=== PATIENT | male | born 1955 | race Caucasian/White ===

== ENCOUNTER 2023-01-27 19:49 | Inpatient (IN) | payer MEDICARE, OTHER ==
[~2023-01-27] VITALS: Ht 172.7 cm; Wt 72.1 kg
[2023-01-27] MEDS ORDERED: OMEP40CA21 PO (21:18)
[2023-01-27] MEDS ORDERED: EZET10TA15 PO (21:18)
[2023-01-27] MEDS ORDERED: SERT25TA PO (21:18)
[2023-01-27] MEDS ORDERED: CHLO25CA22 PO (21:18)
[2023-01-27] MEDS ORDERED: AMLO10TA59 PO (21:18)
[2023-01-27] MEDS ORDERED: SIMV-49 PO (21:18)
[2023-01-27] MEDS ORDERED: GABA-532 PO (21:18)
[2023-01-27] MEDS ORDERED: TAMS-3 PO (21:18)
[2023-01-27 22:20] LABS: ALANINE AMINOTRANSFERASE 22 U/L (16-63); ALBUMIN 4.1 g/dL (3.4-5.0); ALKALINE PHOSPHATASE 76 U/L (50-136); ASPARTATE AMINOTRANSFERASE 21 U/L (15-37); BILIRUBIN,DIRECT 0.1 mg/dL (0.0-0.2); BILIRUBIN,TOTAL 0.3 mg/dL (0.2-1.0); CALCIUM 9.3 mg/dL (8.5-10.1); CARBON DIOXIDE 21 mmol/L (21-32); CHLORIDE 108 mmol/L (98-107); CREATININE 1.3 mg/dL (0.6-1.3); GLUCOSE 107 mg/dL (74-106); POTASSIUM 4.3 mmol/L (3.5-5.1); SODIUM SERUM 145 mmol/L (136-145); TOTAL PROTEIN, SERUM 7.6 g/dL (6.4-8.2); UREA NITROGEN, BLOOD 29 mg/dL (7-18)
[2023-01-27 22:27] LABS: BASOPHILS # (AUTO) 0.1 K/UL (0.0-0.2); BASOPHILS % (AUTO) 1.1 % (0.0-2.0); EOSINOPHILS # (AUTO) 0.1 K/uL (0.0-0.7); EOSINOPHILS % (AUTO) 2.1 % (0.0-7.0); HEMATOCRIT 36.6 % (36.7-47.1); HEMOGLOBIN 12.8 g/dL (12.5-16.3); LYMPHOCYTES # (AUTO) 1.4 K/uL (0.8-4.8); LYMPHOCYTES % (AUTO) 26.1 % (20.5-51.5); MEAN CORPUSCULAR HEMOGLOBIN 30.5 uug (23.8-33.4); MEAN CORPUSCULAR HGB CONC 35 g/dL (32.5-36.3); MEAN CORPUSCULAR VOLUME 87.1 fL (73.0-96.2); MONOCYTES # (AUTO) 0.4 K/uL (0.1-1.30); MONOCYTES % (AUTO) 7.5 % (0.0-11.0); NEUTROPHILS # (AUTO) 3.3 K/uL (1.8-8.9); NEUTROPHILS % (AUTO) 63.2 % (38.5-71.5); PLATELET COUNT (AUTO) 239 K/uL (152-348); RED CELL DISTRIBUTION WIDTH 13.1 % (12.1-16.2); WHITE BLOOD COUNT (AUTO) 5.3 K/uL (3.6-10.2)
[2023-01-27 22:28] LABS: THYROID STIMULATING HORMONE 1.172 mIU/mL (0.358-3.740)
[2023-01-27 22:32] LABS: ACETAMINOPHEN < 2.0 ug/mL (10-30)
[2023-01-27 22:33] LABS: DIFFERENTIAL COMMENT 1
[2023-01-27 22:53] LABS: ETHANOL 175 MG/DL (0-10)
[2023-01-27 22:55] LABS: *BILIRUBIN,URIN NEGATIVE (NEGATIVE); *BLOOD, URINE NEGATIVE (NEGATIVE); *CLARITY,URINE CLEAR (CLEAR); *COLOR,URINE YELLOW (YELLOW); *KETONES,URINE NEGATIVE (NEGATIVE); *PROTEIN,URINE 1+ (NEGATIVE); *UROBILINOGEN,URINE 0.2 E.U./dl (NORMAL); LEUKOCYTE ESTERASE ,URINE NEGATIVE (NEGATIVE); NITRITE, URINE NEGATIVE (NEGATIVE); PH,URINE 5.5 (5.0-8.0); UGLUCOSE NEGATIVE (NEGATIVE)
[2023-01-27 23:06] LABS: AMMONIA 16 umol/L (11-32)
[2023-01-27 23:13] LABS: *AMPHETAMINE, URINE NEGATIVE (NEGATIVE); *BARBITURATE, URINE NEGATIVE (NEGATIVE); *BENZODIAZEPINE, URINE POSITIVE (NEGATIVE); *CANNABINOID, URINE NEGATIVE (NEGATIVE); *COCCAINE, URINE NEGATIVE (NEGATIVE); *OPIATE, URINE NEGATIVE (NEGATIVE); *PHENCYCLIDINE SCREEN,URINE NEGATIVE (NEGATIVE); FENTANYL, URINE NEGATIVE (NEGATIVE)
[2023-01-27] MEDS ORDERED: LORAZEPAM 2 MG/1 ML VIAL IV PRN (23:30)
[2023-01-28 05:22] VITALS: BP 146/83; TEMP 98.2
[2023-01-28 11:55] VITALS: BP 147/82; TEMP 98.7; O2SAT 96
[2023-01-28] MEDS ORDERED: ASPI-1420 PO (12:47)
[2023-01-28] MEDS ORDERED: ERGO500040 PO (12:49)
[2023-01-28] MEDS ORDERED: TRAM50TA2 PO (12:49)
[2023-01-28 15:54] VITALS: BP 148/80; TEMP 97.7; O2SAT 95
[2023-01-28] MEDS ORDERED: TRAMADOL HCL 50 MG TABLET PO PRN (18:15)
[2023-01-28 20:20] VITALS: BP_SYST 140; BP_SYST 148; BP_DIAS 70; BP_DIAS 80; TEMP 97.7; O2SAT 94; O2SAT 95
[2023-01-28] MEDS: SIMVASTATIN 40 MG TABLET PO SCH (22:00)
[2023-01-28] MEDS: TAMSULOSIN HCL 0.4 MG CAP.SR.24H PO SCH (22:01)
[2023-01-28] MEDS ORDERED: ZOLPIDEM 5 MG TABLET PO PRN (23:15)
[2023-01-28] MEDS: CHLORDIAZEPOXIDE HCL 25 MG CAPSULE PO SCH (23:27)
[2023-01-29 04:18] VITALS: BP 151/77; TEMP 97.5; O2SAT 94
[2023-01-29] MEDS: CHLORDIAZEPOXIDE HCL 25 MG CAPSULE PO SCH ×3 (06:09→18:08)
[2023-01-29] MEDS: PANTOPRAZOLE SODIUM 40 MG TABLET.DR PO SCH (06:09)
[2023-01-29] MEDS: IV D5/ 0.9% NACL 1,000 ML IV PRN (06:41)
[2023-01-29 08:00] VITALS: BP 146/70; TEMP 97.9; O2SAT 97
[2023-01-29 08:04] LABS: BASOPHILS % (AUTO) 0.6 % (0.0-2.0); EOSINOPHILS # (AUTO) 0.2 K/uL (0.0-0.7); HEMATOCRIT 33.4 % (36.7-47.1); HEMOGLOBIN 11.7 g/dL (12.5-16.3); LYMPHOCYTES # (AUTO) 0.9 K/uL (0.8-4.8); LYMPHOCYTES % (AUTO) 17.7 % (20.5-51.5); MEAN CORPUSCULAR HEMOGLOBIN 30.9 uug (23.8-33.4); MEAN CORPUSCULAR HGB CONC 35 g/dL (32.5-36.3); MONOCYTES # (AUTO) 0.4 K/uL (0.1-1.30); MONOCYTES % (AUTO) 8.5 % (0.0-11.0); NEUTROPHILS # (AUTO) 3.4 K/uL (1.8-8.9); NEUTROPHILS % (AUTO) 69.2 % (38.5-71.5); PLATELET COUNT (AUTO) 178 K/uL (152-348); RED BLOOD CELL COUNT(AUTO) 3.79 MIL/uL (4.06-5.63); RED CELL DISTRIBUTION WIDTH 12.9 % (12.1-16.2); WHITE BLOOD COUNT (AUTO) 4.9 K/uL (3.6-10.2)
[2023-01-29 08:30] LABS: DIFFERENTIAL COMMENT 1
[2023-01-29 08:38] LABS: CALCIUM 8.4 mg/dL (8.5-10.1); CREATININE 1.1 mg/dL (0.6-1.3); MAGNESIUM 1.6 mg/dL (1.8-2.4); PHOSPHOROUS 2.9 mg/dL (2.5-4.9); POTASSIUM 4.2 mmol/L (3.5-5.1)
[2023-01-29] MEDS: GABAPENTIN 300 MG CAPSULE PO SCH (09:22)
[2023-01-29] MEDS: EZETIMIBE 10 MG TABLET PO SCH (09:22)
[2023-01-29] MEDS: ASPIRIN EC 81 MG TABLET.DR PO SCH (09:22)
[2023-01-29] MEDS: SERTRALINE HCL 50 MG TABLET PO SCH (09:22)
[2023-01-29] MEDS: AMLODIPINE 10 MG TABLET PO SCH (09:25)
[2023-01-29] MEDS: MAGNESIUM SULFATE/D5W 100 ML IV SCH ×4 (10:17→14:04)
[2023-01-29 11:53] VITALS: BP 145/82; TEMP 98.8; O2SAT 96
[2023-01-29 20:00] VITALS: BP 152/83; TEMP 98.2; O2SAT 95
[2023-01-29] MEDS: SIMVASTATIN 40 MG TABLET PO SCH (20:05)
[2023-01-29] MEDS: TAMSULOSIN HCL 0.4 MG CAP.SR.24H PO SCH (20:06)
[2023-01-30] MEDS: CHLORDIAZEPOXIDE HCL 25 MG CAPSULE PO SCH ×3 (00:03→12:15)
[2023-01-30] MEDS: IV D5/ 0.9% NACL 1,000 ML IV PRN (00:39)
[2023-01-30] MEDS ORDERED: ACETAMINOPHEN 325 MG TABLET PO PRN (00:45)
[2023-01-30 04:00] VITALS: BP 141/75; TEMP 97.9; O2SAT 94
[2023-01-30] MEDS: PANTOPRAZOLE SODIUM 40 MG TABLET.DR PO SCH (06:02)
[2023-01-30 06:46] LABS: BASOPHILS % (AUTO) 0.6 % (0.0-2.0); EOSINOPHILS # (AUTO) 0.2 K/uL (0.0-0.7); EOSINOPHILS % (AUTO) 4.1 % (0.0-7.0); HEMATOCRIT 32.1 % (36.7-47.1); HEMOGLOBIN 11.5 g/dL (12.5-16.3); LYMPHOCYTES % (AUTO) 20.9 % (20.5-51.5); MEAN CORPUSCULAR HEMOGLOBIN 31.2 uug (23.8-33.4); MEAN CORPUSCULAR HGB CONC 36 g/dL (32.5-36.3); MEAN CORPUSCULAR VOLUME 87.6 fL (73.0-96.2); MONOCYTES # (AUTO) 0.4 K/uL (0.1-1.30); MONOCYTES % (AUTO) 8.8 % (0.0-11.0); NEUTROPHILS % (AUTO) 65.6 % (38.5-71.5); PLATELET COUNT (AUTO) 174 K/uL (152-348); RED BLOOD CELL COUNT(AUTO) 3.67 MIL/uL (4.06-5.63); WHITE BLOOD COUNT (AUTO) 4.6 K/uL (3.6-10.2)
[2023-01-30 07:04] LABS: CALCIUM 8.1 mg/dL (8.5-10.1); MAGNESIUM 1.9 mg/dL (1.8-2.4); PHOSPHOROUS 3.3 mg/dL (2.5-4.9); POTASSIUM 3.7 mmol/L (3.5-5.1)
[2023-01-30 07:06] LABS: DIFFERENTIAL COMMENT 1
[2023-01-30 07:50] VITALS: BP 147/84; TEMP 97.6; O2SAT 98
[2023-01-30] MEDS: ASPIRIN EC 81 MG TABLET.DR PO SCH (08:50)
[2023-01-30] MEDS: GABAPENTIN 300 MG CAPSULE PO SCH (08:50)
[2023-01-30] MEDS: EZETIMIBE 10 MG TABLET PO SCH (08:50)
[2023-01-30] MEDS: AMLODIPINE 10 MG TABLET PO SCH (08:50)
[2023-01-30] MEDS: SERTRALINE HCL 50 MG TABLET PO SCH (08:51)
[2023-01-30] MEDS ORDERED: MULTIVIT, IRON, MIN NO. 8, FA TABLET PO SCH (09:00)
[2023-01-30] MEDS ORDERED: FOLIC ACID 1 MG TABLET PO SCH (09:00)
[2023-01-30 12:00] VITALS: BP 142/73; TEMP 97.9; O2SAT 97
== END 2023-01-30 15:15 | DRG 897 ==
LOC: ER 19:53 → MEDSURG3 23:00
PROVIDERS: ADMIT Internal Medicine Nephrology; ATTEND Internal Medicine Nephrology
DX: F10.159 Alcohol abuse with alcohol-induced psychotic disorder, unspecified (principal); N17.9 Acute kidney failure, unspecified; G31.2 Degeneration of nervous system due to alcohol; I10 Essential (primary) hypertension; Y90.6 Blood alcohol level of 120-199 mg/100 ml; E78.5 Hyperlipidemia, unspecified; N40.0 Benign prostatic hyperplasia without lower urinary tract symptoms; Z82.49 Family history of ischemic heart disease and other diseases of the circulatory system
CPT/HCPCS: 36415; 70450; 71045; 73030; 83605; 83735; 84100; 84443; 84484; 85025; 85730; 87040; 93005; G0378; G0480; J3475; J7042

== ENCOUNTER 2023-07-25 20:06 | Emergency (ER) | payer MEDICARE, OTHER ==
[~2023-07-25] VITALS: Ht 172.7 cm; Wt 76.2 kg
[~2023-07-25 20:06] MED LIST: AMLO10TA59 PO; ASPI-1420 PO; CHLO25CA22 PO; ERGO500040 PO; EZET10TA15 PO; GABA-532 PO; OMEP40CA21 PO; SERT25TA PO; SIMV-49 PO; TAMS-3 PO; TRAM50TA2 PO
[2023-07-25] MEDS ORDERED: ONDANSETRON 4 MG/2 ML VIAL ONE (20:49)
[2023-07-25] MEDS: ONDANSETRON 4 MG/2 ML VIAL IV ONE (20:58)
[2023-07-25 21:00] LABS: BASOPHILS # (AUTO) 0.1 K/UL (0.0-0.2); EOSINOPHILS # (AUTO) 0.1 K/uL (0.0-0.7); EOSINOPHILS % (AUTO) 1.4 % (0.0-7.0); HEMATOCRIT 42.6 % (36.7-47.1); HEMOGLOBIN 14.6 g/dL (12.5-16.3); LYMPHOCYTES # (AUTO) 1.4 K/uL (0.8-4.8); LYMPHOCYTES % (AUTO) 22.2 % (20.5-51.5); MEAN CORPUSCULAR HEMOGLOBIN 31.1 uug (23.8-33.4); MEAN CORPUSCULAR HGB CONC 34 g/dL (32.5-36.3); MEAN CORPUSCULAR VOLUME 90.5 fL (73.0-96.2); MONOCYTES # (AUTO) 0.3 K/uL (0.1-1.30); MONOCYTES % (AUTO) 5.2 % (0.0-11.0); NEUTROPHILS # (AUTO) 4.5 K/uL (1.8-8.9); NEUTROPHILS % (AUTO) 70.2 % (38.5-71.5); PLATELET COUNT (AUTO) 277 K/uL (152-348); RED BLOOD CELL COUNT(AUTO) 4.71 MIL/uL (4.06-5.63); RED CELL DISTRIBUTION WIDTH 14.8 % (12.1-16.2); WHITE BLOOD COUNT (AUTO) 6.4 K/uL (3.6-10.2)
[2023-07-25 21:05] LABS: DIFFERENTIAL COMMENT 1
[2023-07-25] MEDS: IV NORMAL SALINE 1000 ML BAG IV ONE (21:09)
[2023-07-25 21:33] LABS: POTASSIUM 3.3 mmol/L (3.5-5.1)
[2023-07-25 21:34] LABS: CALCIUM 9.2 mg/dL (8.5-10.1)
[2023-07-25 21:44] LABS: ALBUMIN 3.9 g/dL (3.4-5.0); BILIRUBIN,TOTAL 0.3 mg/dL (0.2-1.0); TOTAL PROTEIN, SERUM 7.9 g/dL (6.4-8.2)
[2023-07-25] MEDS ORDERED: POTASSIUM CHLORIDE 20 MEQ TAB.PRT.SR ONE (22:01)
[2023-07-25] MEDS: POTASSIUM CHLORIDE 20 MEQ TAB.PRT.SR PO ONE (22:06)
[2023-07-25 22:16] LABS: *BILIRUBIN,URIN NEGATIVE (NEGATIVE); *BLOOD, URINE NEGATIVE (NEGATIVE); *CLARITY,URINE CLEAR (CLEAR); *COLOR,URINE YELLOW (YELLOW); *KETONES,URINE NEGATIVE (NEGATIVE); *PROTEIN,URINE 1+ (NEGATIVE); *UROBILINOGEN,URINE 0.2 E.U./dl (NORMAL); LEUKOCYTE ESTERASE ,URINE NEGATIVE (NEGATIVE); NITRITE, URINE NEGATIVE (NEGATIVE); PH,URINE 6.5 (5.0-8.0); UGLUCOSE NEGATIVE (NEGATIVE)
[2023-07-25 22:25] LABS: *AMPHETAMINE, URINE NEGATIVE (NEGATIVE); *BARBITURATE, URINE NEGATIVE (NEGATIVE); *BENZODIAZEPINE, URINE NEGATIVE (NEGATIVE); *CANNABINOID, URINE NEGATIVE (NEGATIVE); *COCCAINE, URINE NEGATIVE (NEGATIVE); *OPIATE, URINE NEGATIVE (NEGATIVE); *PHENCYCLIDINE SCREEN,URINE NEGATIVE (NEGATIVE); FENTANYL, URINE NEGATIVE (NEGATIVE)
[2023-07-25 22:33] LABS: BACTERIA,URINE NONE SEEN /HPF (NONE SEEN); RBC,URINE NONE SEEN /HPF (0-3); SQUAMOUS EPITHELIAL CELL,UR FEW /HPF (NONE SEEN); WBC,URINE NONE SEEN /HPF (0-3)
[2023-07-25] MEDS: IV NS 1000 ML 1,000 ML IV ONE (23:27)
[2023-07-26] MEDS ORDERED: CHLO25CA22 PO (07:24)
[2023-07-26] MEDS ORDERED: POTA25TA7 PO (07:24)
[2023-07-26] MEDS ORDERED: CHLORDIAZEPOXIDE HCL 25 MG CAPSULE ONE (07:26)
[2023-07-26] MEDS: CHLORDIAZEPOXIDE HCL 25 MG CAPSULE PO ONE (07:28)
[2023-07-26 07:30] VITALS: O2SAT 98
== END 2023-07-26 07:31 | disposition home or self-care (01) ==
LOC: ER 20:10
DX: F10.129 Alcohol abuse with intoxication, unspecified (principal); E87.6 Hypokalemia; I10 Essential (primary) hypertension; K21.9 Gastro-esophageal reflux disease without esophagitis; Z79.82 Long term (current) use of aspirin; Z79.899 Other long term (current) drug therapy; Y90.0 Blood alcohol level of less than 20 mg/100 ml
CPT/HCPCS: 80053; 81001; 83735; 85025; 36415; 74176 ×2; 99285; 96361; 96374; 80320; 80307; J2405; J7040 ×2; A4606; A4663; G0480

== ENCOUNTER 2023-07-30 10:05 | Inpatient (IN) | payer MEDICARE, OTHER ==
[~2023-07-30] VITALS: Ht 172.7 cm; Wt 76.2 kg
[~2023-07-30 10:05] MED LIST changes: +POTA25TA7 PO; -TRAM50TA2 PO
[2023-07-30 11:02] LABS: *BILIRUBIN,URIN NEGATIVE (NEGATIVE); *BLOOD, URINE NEGATIVE (NEGATIVE); *CLARITY,URINE CLEAR (CLEAR); *COLOR,URINE YELLOW (YELLOW); *KETONES,URINE NEGATIVE (NEGATIVE); *PROTEIN,URINE 2+ (NEGATIVE); *UROBILINOGEN,URINE 0.2 E.U./dl (NORMAL); LEUKOCYTE ESTERASE ,URINE NEGATIVE (NEGATIVE); NITRITE, URINE NEGATIVE (NEGATIVE); PH,URINE 5.5 (5.0-8.0); UGLUCOSE NEGATIVE (NEGATIVE)
[2023-07-30] MEDS ORDERED: KETOROLAC TROMETHAMINE 15 MG INJ ONE (11:08)
[2023-07-30] MEDS ORDERED: METOCLOPRAMIDE HCL 10 MG/2 ML VIAL ONE (11:08)
[2023-07-30] MEDS: KETOROLAC TROMETHAMINE 15 MG INJ IVP ONE (11:13)
[2023-07-30] MEDS: METOCLOPRAMIDE HCL 10 MG/2 ML VIAL IV ONE (11:16)
[2023-07-30 11:30] LABS: SQUAMOUS EPITHELIAL CELL,UR FEW /HPF (NONE SEEN); WBC,URINE NONE SEEN /HPF (0-3)
[2023-07-30 11:56] LABS: BASOPHILS % (AUTO) 0.9 % (0.0-2.0); EOSINOPHILS # (AUTO) 0.1 K/uL (0.0-0.7); EOSINOPHILS % (AUTO) 2.4 % (0.0-7.0); HEMATOCRIT 38.4 % (36.7-47.1); HEMOGLOBIN 13.3 g/dL (12.5-16.3); LYMPHOCYTES % (AUTO) 19.8 % (20.5-51.5); MEAN CORPUSCULAR HEMOGLOBIN 31.3 uug (23.8-33.4); MEAN CORPUSCULAR HGB CONC 35 g/dL (32.5-36.3); MEAN CORPUSCULAR VOLUME 90.1 fL (73.0-96.2); MONOCYTES # (AUTO) 0.5 K/uL (0.1-1.30); MONOCYTES % (AUTO) 8.9 % (0.0-11.0); NEUTROPHILS # (AUTO) 3.6 K/uL (1.8-8.9); PLATELET COUNT (AUTO) 226 K/uL (152-348); RED BLOOD CELL COUNT(AUTO) 4.27 MIL/uL (4.06-5.63); RED CELL DISTRIBUTION WIDTH 14.5 % (12.1-16.2); WHITE BLOOD COUNT (AUTO) 5.3 K/uL (3.6-10.2)
[2023-07-30 12:09] LABS: AMMONIA < 10 umol/L (11-32)
[2023-07-30 12:22] LABS: ALANINE AMINOTRANSFERASE 43 U/L (16-63); ALBUMIN 3.3 g/dL (3.4-5.0); ALKALINE PHOSPHATASE 87 U/L (50-136); ASPARTATE AMINOTRANSFERASE 31 U/L (15-37); BILIRUBIN,TOTAL 0.2 mg/dL (0.2-1.0); CALCIUM 8.4 mg/dL (8.5-10.1); CARBON DIOXIDE 22 mmol/L (21-32); CHLORIDE 105 mmol/L (98-107); CREATININE 1.1 mg/dL (0.6-1.3); GLUCOSE 93 mg/dL (74-106); LIPASE 68 U/L (16-77); POTASSIUM 4.1 mmol/L (3.5-5.1); SODIUM SERUM 139 mmol/L (136-145); TOTAL PROTEIN, SERUM 6.9 g/dL (6.4-8.2); UREA NITROGEN, BLOOD 16 mg/dL (7-18)
[2023-07-30 12:27] LABS: BILIRUBIN,DIRECT < 0.1 mg/dL (0.0-0.2)
[2023-07-30 12:36] LABS: DIFFERENTIAL COMMENT 1
[2023-07-30 18:00] VITALS: BP 157/71; TEMP 98.3; O2SAT 94
[2023-07-30] MEDS ORDERED: ONDANSETRON 4 MG/2 ML VIAL IV PRN (19:30)
[2023-07-30] MEDS ORDERED: REMEDY ESSENTIAL ZINC PASTE 113 GM TP PRN (19:30)
[2023-07-30] MEDS ORDERED: MAGNESIUM HYDROXIDE 30 ML LIQUID UDC PO PRN (19:30)
[2023-07-30] MEDS ORDERED: THIAMINE HCL 200 MG/2 ML VIAL ONE (19:44)
[2023-07-30 20:00] VITALS: BP 130/73; TEMP 98.2; O2SAT 98
[2023-07-30] MEDS: THIAMINE HCL INJ 100 MG in IV DEXTROSE 5% 50 ML IV SCH (20:06)
[2023-07-30] MEDS: MULTIVITAMINS,THERAPEUTIC TABLET PO SCH (20:07)
[2023-07-30] MEDS: SIMVASTATIN 40 MG TABLET PO SCH (20:07)
[2023-07-30] MEDS: IV LACTATED RINGERS SOLUTION 1,000 ML IV PRN (20:08)
[2023-07-30] MEDS: ENOXAPARIN SODIUM 40 MG/0.4 ML DISP.SYRIN SQ SCH (20:08)
[2023-07-31] MEDS: LORAZEPAM 2 MG/1 ML VIAL IV PRN (01:51)
[2023-07-31 06:00] VITALS: BP 134/81; TEMP 98; O2SAT 94
[2023-07-31] MEDS: PANTOPRAZOLE SODIUM 40 MG TABLET.DR PO SCH (06:06)
[2023-07-31 07:13] LABS: BASOPHILS # (AUTO) 0.1 K/UL (0.0-0.2); BASOPHILS % (AUTO) 1.1 % (0.0-2.0); EOSINOPHILS # (AUTO) 0.1 K/uL (0.0-0.7); EOSINOPHILS % (AUTO) 1.9 % (0.0-7.0); HEMATOCRIT 37.1 % (36.7-47.1); HEMOGLOBIN 12.7 g/dL (12.5-16.3); LYMPHOCYTES # (AUTO) 0.7 K/uL (0.8-4.8); LYMPHOCYTES % (AUTO) 15.7 % (20.5-51.5); MEAN CORPUSCULAR HGB CONC 34 g/dL (32.5-36.3); MEAN CORPUSCULAR VOLUME 90.4 fL (73.0-96.2); MONOCYTES # (AUTO) 0.6 K/uL (0.1-1.30); MONOCYTES % (AUTO) 13.5 % (0.0-11.0); NEUTROPHILS # (AUTO) 3.2 K/uL (1.8-8.9); NEUTROPHILS % (AUTO) 67.8 % (38.5-71.5); PLATELET COUNT (AUTO) 203 K/uL (152-348); RED CELL DISTRIBUTION WIDTH 14.7 % (12.1-16.2); WHITE BLOOD COUNT (AUTO) 4.7 K/uL (3.6-10.2)
[2023-07-31 07:18] LABS: CALCIUM 8.4 mg/dL (8.5-10.1); CREATININE 1.1 mg/dL (0.6-1.3); MAGNESIUM 1.8 mg/dL (1.8-2.4); PHOSPHOROUS 2.9 mg/dL (2.5-4.9); POTASSIUM 4.1 mmol/L (3.5-5.1)
[2023-07-31 07:29] LABS: DIFFERENTIAL COMMENT 1
[2023-07-31 08:13] LABS: THYROID STIMULATING HORMONE 2.438 mIU/mL (0.358-3.740)
[2023-07-31] MEDS: THIAMINE HCL 100 MG TABLET PO SCH (08:53)
[2023-07-31] MEDS: GABAPENTIN 300 MG CAPSULE PO SCH (08:53)
[2023-07-31] MEDS: SERTRALINE HCL 50 MG TABLET PO SCH (08:53)
[2023-07-31] MEDS: EZETIMIBE 10 MG TABLET PO SCH (08:53)
[2023-07-31] MEDS: ASPIRIN EC 81 MG TABLET.DR PO SCH (08:53)
[2023-07-31] MEDS: AMLODIPINE 10 MG TABLET PO SCH (08:54)
[2023-07-31 11:21] VITALS: BP 151/76; TEMP 98.4; O2SAT 98
[2023-07-31 15:32] VITALS: BP 152/73; TEMP 98.9; O2SAT 96
[2023-07-31] MEDS: CHLORDIAZEPOXIDE HCL 25 MG CAPSULE PO SCH (16:41)
[2023-07-31 19:30] VITALS: BP 149/72; TEMP 98; O2SAT 96
[2023-07-31] MEDS: ACETAMINOPHEN 325 MG TABLET PO PRN (21:49)
[2023-08-01 05:57] VITALS: BP 139/58; TEMP 98.4; O2SAT 96
[2023-08-01 07:05] LABS: EOSINOPHILS # (AUTO) 0.1 K/uL (0.0-0.7); EOSINOPHILS % (AUTO) 2.5 % (0.0-7.0); HEMATOCRIT 37.9 % (36.7-47.1); LYMPHOCYTES # (AUTO) 1.1 K/uL (0.8-4.8); LYMPHOCYTES % (AUTO) 22.6 % (20.5-51.5); MEAN CORPUSCULAR HGB CONC 34 g/dL (32.5-36.3); MONOCYTES # (AUTO) 0.8 K/uL (0.1-1.30); MONOCYTES % (AUTO) 16.6 % (0.0-11.0); NEUTROPHILS # (AUTO) 2.7 K/uL (1.8-8.9); NEUTROPHILS % (AUTO) 57.3 % (38.5-71.5); PLATELET COUNT (AUTO) 201 K/uL (152-348); RED BLOOD CELL COUNT(AUTO) 4.21 MIL/uL (4.06-5.63); RED CELL DISTRIBUTION WIDTH 14.4 % (12.1-16.2); WHITE BLOOD COUNT (AUTO) 4.8 K/uL (3.6-10.2)
[2023-08-01 07:27] LABS: ALBUMIN 2.9 g/dL (3.4-5.0); BILIRUBIN,TOTAL 0.4 mg/dL (0.2-1.0); CALCIUM 8.5 mg/dL (8.5-10.1); CREATININE 1.1 mg/dL (0.6-1.3); MAGNESIUM 1.8 mg/dL (1.8-2.4); PHOSPHOROUS 2.8 mg/dL (2.5-4.9); POTASSIUM 3.8 mmol/L (3.5-5.1); TOTAL PROTEIN, SERUM 6.3 g/dL (6.4-8.2)
[2023-08-01 07:28] LABS: DIFFERENTIAL COMMENT 1
[2023-08-01 08:01] VITALS: BP 146/70; TEMP 97.5; O2SAT 95
[2023-08-01] MEDS ORDERED: FOLI1TAB94 PO (10:22)
[2023-08-01] MEDS ORDERED: GABA100C PO (10:23)
[2023-08-01] MEDS ORDERED: MULT-594 PO (10:24)
[2023-08-01] MEDS ORDERED: PANT40TA49 PO (10:24)
[2023-08-01 11:30] LABS: EOSINOPHILS % (MANUAL) 3 % (0-8); NEUTROPHILS % (MANUAL) 63 % (42-75)
[2023-08-01 11:31] LABS: LYMPHOCYTES % (MANUAL) 22 % (20-40); MONOCYTES % (MANUAL) 12 % (2-10); PLATELET ESTIMATE ADEQUATE
[2023-08-01 12:00] VITALS: BP 144/70; TEMP 97.8; O2SAT 95
[2023-08-01 16:00] VITALS: BP 146/79; TEMP 97.9; O2SAT 97
[2023-08-01 20:00] VITALS: BP 147/80; TEMP 97.9; O2SAT 97
[2023-08-01] MEDS: GABAPENTIN 100 MG CAPSULE PO SCH (21:26)
[2023-08-02 06:00] VITALS: BP 126/76; TEMP 97.7; O2SAT 95
[2023-08-02] MEDS: FOLIC ACID 1 MG TABLET PO SCH (08:59)
[2023-08-02] MEDS: MULTIVITAMINS,THERAPEUTIC TABLET PO SCH (09:11)
[2023-08-02 12:00] VITALS: BP 122/71; TEMP 97.8; O2SAT 95
[2023-08-02] MEDS ORDERED: THIA100T13 PO (12:27)
== END 2023-08-02 15:30 | DRG 896 ==
LOC: ER 10:05 → MEDSURG3 13:15
PROVIDERS: ADMIT Nurse Practitioner Acute Care; ATTEND Nurse Practitioner Acute Care
DX: F10.239 Alcohol dependence with withdrawal, unspecified (principal); G93.41 Metabolic encephalopathy; R80.9 Proteinuria, unspecified; F10.229 Alcohol dependence with intoxication, unspecified; Y90.8 Blood alcohol level of 240 mg/100 ml or more; R10.32 Left lower quadrant pain; K21.9 Gastro-esophageal reflux disease without esophagitis; E78.5 Hyperlipidemia, unspecified; Z87.891 Personal history of nicotine dependence; N32.3 Diverticulum of bladder; N40.0 Benign prostatic hyperplasia without lower urinary tract symptoms; I25.10 Atherosclerotic heart disease of native coronary artery without angina pectoris; F41.9 Anxiety disorder, unspecified; K40.90 Unilateral inguinal hernia, without obstruction or gangrene, not specified as recurrent; I10 Essential (primary) hypertension; Z87.448 Personal history of other diseases of urinary system; Z79.82 Long term (current) use of aspirin; Z79.899 Other long term (current) drug therapy
CPT/HCPCS: 36415; 70030-TC; 71045; 83605; 83690; 83735; 84100; 84443; 84484; 85025; 85730; 87040; 93005; A4606; A4663; G0378; G0480; J1650; J1885; J2060; J2765; J3411; J7120

== ENCOUNTER 2024-10-30 21:08 | Emergency (ER) | payer MEDICARE, OTHER ==
[~2024-10-30] VITALS: Ht 172.7 cm; Wt 76.2 kg
[~2024-10-30 21:08] MED LIST changes: -CHLO25CA22 PO; -ERGO500040 PO; +FOLI1TAB94 PO; +GABA100C PO; +MULT-594 PO; -OMEP40CA21 PO; +PANT40TA49 PO; +THIA100T13 PO
[2024-10-30 21:24] LABS: BASOPHILS # (AUTO) 0.1 K/UL (0.0-0.2); EOSINOPHILS % (AUTO) 0.7 % (0.0-7.0); HEMATOCRIT 48.2 % (36.7-47.1); LYMPHOCYTES # (AUTO) 1.9 K/uL (0.8-4.8); LYMPHOCYTES % (AUTO) 26.8 % (20.5-51.5); MEAN CORPUSCULAR HEMOGLOBIN 29.7 uug (23.8-33.4); MEAN CORPUSCULAR HGB CONC 35 g/dL (32.5-36.3); MEAN CORPUSCULAR VOLUME 84.3 fL (73.0-96.2); MONOCYTES # (AUTO) 0.7 K/uL (0.1-1.30); MONOCYTES % (AUTO) 10.1 % (0.0-11.0); NEUTROPHILS # (AUTO) 4.3 K/uL (1.8-8.9); NEUTROPHILS % (AUTO) 61.4 % (38.5-71.5); PLATELET COUNT (AUTO) 277 K/uL (152-348); RED BLOOD CELL COUNT(AUTO) 5.72 MIL/uL (4.06-5.63)
[2024-10-30 21:27] LABS: DIFFERENTIAL COMMENT 1
[2024-10-30] MEDS ORDERED: PHENOBARBITAL SODIUM 130 MG/1 ML DISP.SYRIN ONE (21:29)
[2024-10-30] MEDS: THIAMINE HCL 100 MG TABLET PO ONE (21:31)
[2024-10-30] MEDS: FOLIC ACID 1 MG TABLET PO ONE (21:31)
[2024-10-30] MEDS: IV NORMAL SALINE 500 ML BAG IV ONE (21:31)
[2024-10-30] MEDS: PHENOBARBITAL SODIUM 130 MG/1 ML DISP.SYRIN IV ONE (21:31)
[2024-10-30 21:40] LABS: C-REACTIVE PROTEIN 0.74 mg/dL (0.00-0.30)
[2024-10-30 21:44] LABS: CREATININE 1.3 mg/dL (0.6-1.3); POTASSIUM 3.7 mmol/L (3.5-5.1)
[2024-10-30 21:49] LABS: ALBUMIN 3.8 g/dL (3.4-5.0); BILIRUBIN,TOTAL 0.2 mg/dL (0.2-1.0); MAGNESIUM 2.1 mg/dL (1.8-2.4); TOTAL PROTEIN, SERUM 7.8 g/dL (6.4-8.2)
[2024-10-30] MEDS ORDERED: ONDA4TAB5 PO (23:22)
[2024-10-30] MEDS ORDERED: PANT40TA2 PO (23:22)
[2024-10-31 01:07] VITALS: BP 118/72; TEMP 98.1; O2SAT 97
== END 2024-10-31 01:00 | disposition home or self-care (01) ==
LOC: ER 21:08
DX: F10.129 Alcohol abuse with intoxication, unspecified (principal); K21.9 Gastro-esophageal reflux disease without esophagitis; Z79.82 Long term (current) use of aspirin; Z79.899 Other long term (current) drug therapy; Z86.79 Personal history of other diseases of the circulatory system; Y90.7 Blood alcohol level of 200-239 mg/100 ml
CPT/HCPCS: 80053; 83690; 83735; 85025; 86140; 36415; 93005; 99284; 96361; 96374; 83605; 80320; J2560; J7040; A4606; A4663; G0480

== ENCOUNTER 2024-11-01 13:55 | Inpatient (IN) | payer MEDICARE, OTHER ==
[~2024-11-01] VITALS: Ht 172.7 cm; Wt 77.1 kg
[~2024-11-01 13:55] MED LIST changes: +ONDA4TAB5 PO; +PANT40TA2 PO
[2024-11-01] MEDS ORDERED: THIAMINE HCL 200 MG/2 ML VIAL ONE (14:24)
[2024-11-01 14:25] LABS: BASOPHILS # (AUTO) 0.1 K/UL (0.0-0.2); BASOPHILS % (AUTO) 1.3 % (0.0-2.0); EOSINOPHILS # (AUTO) 0.1 K/uL (0.0-0.7); EOSINOPHILS % (AUTO) 2.6 % (0.0-7.0); HEMATOCRIT 45.9 % (36.7-47.1); HEMOGLOBIN 15.6 g/dL (12.5-16.3); LYMPHOCYTES # (AUTO) 1.1 K/uL (0.8-4.8); LYMPHOCYTES % (AUTO) 23.6 % (20.5-51.5); MEAN CORPUSCULAR HEMOGLOBIN 29.3 uug (23.8-33.4); MEAN CORPUSCULAR HGB CONC 34 g/dL (32.5-36.3); MONOCYTES # (AUTO) 0.6 K/uL (0.1-1.30); MONOCYTES % (AUTO) 11.8 % (0.0-11.0); NEUTROPHILS # (AUTO) 2.8 K/uL (1.8-8.9); NEUTROPHILS % (AUTO) 60.7 % (38.5-71.5); PLATELET COUNT (AUTO) 229 K/uL (152-348); RED BLOOD CELL COUNT(AUTO) 5.33 MIL/uL (4.06-5.63); RED CELL DISTRIBUTION WIDTH 14.4 % (12.1-16.2); WHITE BLOOD COUNT (AUTO) 4.6 K/uL (3.6-10.2)
[2024-11-01 14:30] LABS: DIFFERENTIAL COMMENT 1
[2024-11-01 14:39] LABS: ALBUMIN 3.4 g/dL (3.4-5.0); BILIRUBIN,DIRECT 0.1 mg/dL (0.0-0.2); BILIRUBIN,TOTAL 0.3 mg/dL (0.2-1.0); CREATININE 0.9 mg/dL (0.6-1.3); POTASSIUM 3.7 mmol/L (3.5-5.1); TOTAL PROTEIN, SERUM 6.6 g/dL (6.4-8.2)
[2024-11-01] MEDS: THIAMINE HCL 200 MG/2 ML VIAL IV ONE (14:46)
[2024-11-01] MEDS: MAGNESIUM SULFATE/D5W 100 ML IV ONE (14:46)
[2024-11-01] MEDS: IV NS 1000 ML 1,000 ML IV PRN (14:47)
[2024-11-01] MEDS ORDERED: MAGNESIUM SULFATE/D5W 100 ML ONE (15:00)
[2024-11-01 16:09] LABS: *BILIRUBIN,URIN NEGATIVE (NEGATIVE); *BLOOD, URINE NEGATIVE (NEGATIVE); *CLARITY,URINE CLEAR (CLEAR); *COLOR,URINE YELLOW (YELLOW); *KETONES,URINE NEGATIVE (NEGATIVE); *PROTEIN,URINE 2+ (NEGATIVE); *UROBILINOGEN,URINE 0.2 E.U./dl (NORMAL); LEUKOCYTE ESTERASE ,URINE NEGATIVE (NEGATIVE); NITRITE, URINE NEGATIVE (NEGATIVE); PH,URINE 5.5 (5.0-8.0); UGLUCOSE NEGATIVE (NEGATIVE)
[2024-11-01 16:33] LABS: *AMPHETAMINE, URINE NEGATIVE (NEGATIVE); *BARBITURATE, URINE NEGATIVE (NEGATIVE); *BENZODIAZEPINE, URINE NEGATIVE (NEGATIVE); *CANNABINOID, URINE NEGATIVE (NEGATIVE); *COCCAINE, URINE NEGATIVE (NEGATIVE); *OPIATE, URINE NEGATIVE (NEGATIVE); *PHENCYCLIDINE SCREEN,URINE NEGATIVE (NEGATIVE); FENTANYL, URINE NEGATIVE (NEGATIVE)
[2024-11-01 16:44] LABS: RBC,URINE NONE SEEN /HPF (0-3); WBC,URINE 0-3 /HPF (0-3)
[2024-11-01 16:45] LABS: BACTERIA,URINE NONE SEEN /HPF (NONE SEEN); SQUAMOUS EPITHELIAL CELL,UR NONE SEEN /HPF (NONE SEEN)
[2024-11-01 17:00] VITALS: BP 149/72; TEMP 98.4; O2SAT 95
[2024-11-01 19:25] VITALS: BP 147/45; TEMP 98.5; O2SAT 94
[2024-11-01] MEDS: SIMVASTATIN 40 MG TABLET PO SCH (20:38)
[2024-11-01] MEDS: TAMSULOSIN HCL 0.4 MG CAP.SR.24H PO SCH (20:38)
[2024-11-01] MEDS: GABAPENTIN 100 MG CAPSULE PO SCH (20:38)
[2024-11-01] MEDS: LORAZEPAM 2 MG/1 ML VIAL IV PRN (22:25)
[2024-11-01] MEDS ORDERED: ALBUTEROL SULFATE 2.5 MG/3 ML NEBU NEB PRN (23:00)
[2024-11-01] MEDS ORDERED: GUAIFENESIN/CODEINE 5 ML LIQUID UDC PO PRN (23:00)
[2024-11-01] MEDS ORDERED: LORAZEPAM 2 MG/1 ML VIAL IV PRN (23:30)
[2024-11-02] VITALS (7 sets, daily range): BP systolic 101–127; BP diastolic 53–87; TEMP 98–99; O2SAT 94–97
[2024-11-02] MEDS: THIAMINE HCL 100 MG TABLET PO SCH (08:08)
[2024-11-02] MEDS: GABAPENTIN 300 MG CAPSULE PO SCH (08:08)
[2024-11-02] MEDS: EZETIMIBE 10 MG TABLET PO SCH (08:08)
[2024-11-02] MEDS: PANTOPRAZOLE SODIUM 40 MG TABLET.DR PO SCH (08:08)
[2024-11-02] MEDS: ASPIRIN EC 81 MG TABLET.DR PO SCH (08:08)
[2024-11-02] MEDS: SERTRALINE HCL 50 MG TABLET PO SCH (08:08)
[2024-11-02] MEDS: FOLIC ACID 1 MG TABLET PO SCH (08:08)
[2024-11-02] MEDS: MULTIVITAMINS,THERAPEUTIC TABLET PO SCH (08:08)
[2024-11-02] MEDS ORDERED: GABAPENTIN 100 MG CAPSULE PO SCH (09:00)
[2024-11-02] MEDS: AMLODIPINE 10 MG TABLET PO SCH (09:24)
[2024-11-02] MEDS ORDERED: LISI10TA29 PO (17:19)
[2024-11-02] MEDS: GABAPENTIN 100 MG CAPSULE PO SCH (20:24)
[2024-11-03 00:01] VITALS: BP 116/47; TEMP 98.1; O2SAT 96
[2024-11-03 05:11] VITALS: BP 118/47; TEMP 97.5; O2SAT 94
[2024-11-03 08:00] VITALS: BP 104/59; TEMP 99.8; O2SAT 97
[2024-11-03 11:51] VITALS: BP 121/62; TEMP 98.3; O2SAT 99
[2024-11-03 16:00] VITALS: BP_SYST 144; BP_SYST 145; BP_DIAS 67; BP_DIAS 83; TEMP 97.8; TEMP 98.1; O2SAT 98
[2024-11-03 21:25] VITALS: BP 156/63; TEMP 98.2; O2SAT 97
[2024-11-04] VITALS: BP 136/55; TEMP 98.4; O2SAT 98
[2024-11-04 05:00] VITALS: BP 137/66; TEMP 98.7; O2SAT 95
[2024-11-04 07:30] VITALS: BP 139/57; TEMP 98.1; O2SAT 96
[2024-11-04] MEDS ORDERED: LORAZEPAM 1 MG TABLET PO PRN (09:30)
[2024-11-04] MEDS ORDERED: LORAZEPAM 2 MG/1 ML VIAL IV PRN (09:30)
[2024-11-04 11:27] VITALS: BP 130/82; TEMP 98.7; O2SAT 96
== END 2024-11-04 12:35 | DRG 917 ==
LOC: ER 13:55 → TELE3 16:38 → MEDSURG3 11-04 09:14
PROVIDERS: ADMIT Internal Medicine; ATTEND Internal Medicine
DX: T51.0X1A Toxic effect of ethanol, accidental (unintentional), initial encounter (principal); G92.8 Other toxic encephalopathy; F10.239 Alcohol dependence with withdrawal, unspecified; D68.59 Other primary thrombophilia; Z59.02 Unsheltered homelessness; J44.0 Chronic obstructive pulmonary disease with (acute) lower respiratory infection; F10.229 Alcohol dependence with intoxication, unspecified; Y90.8 Blood alcohol level of 240 mg/100 ml or more; Y92.129 Unspecified place in nursing home as the place of occurrence of the external cause; Z87.891 Personal history of nicotine dependence; N40.0 Benign prostatic hyperplasia without lower urinary tract symptoms; M15.9 Polyosteoarthritis, unspecified; I25.10 Atherosclerotic heart disease of native coronary artery without angina pectoris; Z74.09 Other reduced mobility; R00.1 Bradycardia, unspecified; J20.9 Acute bronchitis, unspecified; F32.A Depression, unspecified; K21.9 Gastro-esophageal reflux disease without esophagitis; I10 Essential (primary) hypertension
CPT/HCPCS: 36415; 71045; 83605; 83690; 83735; 84484; 85025; 85730; 86140; G0378; G0480; J2060; J3411; J3475; J7040